=== PATIENT | female | born 1950 | race Hispanic/Latino ===

== ENCOUNTER 2019-07-21 07:19 | Inpatient (IN) ==
[2019-07-21] MEDS ORDERED: MORPHINE IV ONE (07:53)
[2019-07-21] MEDS ORDERED: NS 1,000 ML IV ONE ×2 (07:53→11:35)
--- NOTE | 2019-07-21 08:00 | PROVIDER DOCUMENTATION ---
HPI-Abdominal Pain/GI Problem - General Chief Complaint: Abdominal Pain Stated Complaint: STOMACH PAIN Time Seen by Provider: 07/21/19 07:43 Allergies/Adverse Reactions: Patient Allergies Allergy/AdvReac Type Severity Reaction Status Date / Time No Known Allergies Allergy Verified 06/26/19 10:15 Home Medications: Home Medication List Medication Instructions Recorded Confirmed Last Taken Type Atorvastatin Calcium 20 mg PO DAILY 06/26/19 07/21/19 06/26/19 08:00 History Ferrous Sulfate [Iron] 325 mg PO Q7D 06/26/19 07/21/19 Unknown History Hydrochlorothiazide 25 mg PO DAILY 06/26/19 07/21/19 06/26/19 08:00 History Omeprazole 20 mg PO DAILY 06/26/19 07/21/19 06/26/19 08:00 History Tramadol HCl 50 mg PO TID 07/21/19 07/21/19 Unknown History - History of Present Illness-ABD Nature of Presenting Problems: Sharp RUQ, mid abd pain, intermittently since ~1500 yest. Episodes last min or so, nothing relieves. Are worsened by laying supine. No fever, has occ nausea, no vomiting. No change in BM, no dysuria. She had a lap denzel on 06/[address] Jernigan Pain Radiation: reports: other (down R abd) Review of Systems - Adult - REVIEW OF SYSTEMS - ADULT Constitutional: reports: no symptoms reported Eyes: reports: no symptoms reported Cardiovascular: reports: no symptoms reported Respiratory: reports: no symptoms reported Gastrointestinal: reports: see HPI Genitourinary: reports: no symptoms reported Musculoskeletal: reports: no symptoms reported Integumentary: reports: no symptoms reported Neurological: reports: no symptoms reported Psychiatric: reports: no symptoms reported Endocrine: reports: no symptoms reported Hematologic/Lymphatic: reports: no symptoms reported Allergic/Immunologic: reports: no symptoms reported Past History - Adult - PAST MEDICAL HISTORY-ADULT Review of Records: reports: Medications Reviewed Major Childhood Illnesses: reports: denies history Cardiovascular: reports: HTN, hyperlipidemia Respiratory: reports: denies history Gastrointestinal: reports: denies history Obstetrical/Gynecological: reports: denies history Genitourinary: reports: denies history Musculoskeletal: reports: denies history Neurological: reports: denies history Psychiatric: reports: denies history Endocrine/Immune: reports: denies history - PRIOR SURGERIES/PROCEDURES Surgical/Procedure History: reports: none - IMMUNIZATION STATUS Childhood Immunizations: See Nurse Assessment Flu Vaccine: See Nurse Assessment - FAMILY HISTORY Family History: reviewed, not pertinent - SOCIAL HISTORY Smoking: denies Physical Exam-General - PHYSICAL EXAM-ADULT Initial Vital Signs Reviewed: Yes - CONSTITUTIONAL General Appearance: appears well, alert, moderate distress - EYES Eyes: PERRL/EOMI, pink conjunctivae - HEAD, EARS, NOSE, MOUTH & THROAT HENMT: normocephalic/atraumatic, moist mucous membranes, normal ENT inspection, pharynx normal - NECK Neck: non-tender, full range of motion, supple, normal inspection - RESPIRATORY Respiratory: chest non-tender, lungs clear, normal breath sounds, no pleuratic chest pain, no respiratory distress, no accessory muscle use - CARDIOVASCULAR Cardiovascular: normal peripheral pulses, regular rate, rhythm, no edema, no gallop, no murmur - GASTROINTESTINAL (ABDOMEN) Abdominal Exam: normal bowel sounds, soft, tenderness (mod to RUQ, mild to LLQ. incisions well healed, no erythema, no signs infection) - MUSCULOSKELETAL Back Exam: normal inspection, no vertebral tenderness, CVA tenderness (to Right) Extremity: normal range of motion, non-tender, normal inspection - SKIN Integumentary: normal color, normal turgor, warm/dry - NEUROLOGIC Neurologic: hematology technician II-XII nml as tested, grossly normal, no motor/sensory deficits - PSYCHIATRIC Psych/Mental Status: normal mood/affect, normal thought content, normal thought process, oriented x 3 Progress - PLAN OF CARE/RESULTS Progress/Plan/Lab Results: Vital Signs - 8 hr 07/21/19 07:24 Temperature 97.6 F Pulse Rate 75 Respiratory Rate 18 Blood Pressure 151/78 O2 Sat by Pulse Oximetry 98 Orders Category Date Time Status CT ABD/PELVIS W/IV CONT ONLY [CT] Stat Exams 07/21/19 07:53 Ordered AMYLASE [CHEM] Stat Lab 07/21/19 07:53 Uncollected CBC WITH DIFF [HEME] Stat Lab 07/21/19 07:52 Uncollected COMPREHENSIVE METABOLIC PANEL [CHEM] Stat Lab 07/21/19 07:53 Uncollected LIPASE [CHEM] Stat Lab 07/21/19 07:[address] W/POSS RFLX CULT [URINALYSIS] Stat Lab 07/21/19 07:53 Uncollected 0.9% Sodium Chloride Inj [Ns] 1,000 ml Med 07/21/19 07:53 Ordered IV 200 mls/hr Morphine Med 07/21/19 07:53 Once 4 mg IV NOW ONE Result Diagrams: 07/21/19 08:18 07/21/19 08:18 - CT/MRI 1 CT Study: Abdomen, Pelvis Impression: Abnormal (EXAM: CT ABD/PELVIS W/IV CONT ONLY HISTORY: RUQ, recent lap denzel TECHNIQUE: CT abdomen and pelvis with intravenous contrast COMPARISON: None. FINDINGS: The gallbladder has been removed. There is prominent fatty infiltration of the liver. Normal spleen, pancreas, adrenal glands, and kidneys. No hydronephrosis. No aortic aneurysm. Moderate atherosclerosis. There are fluid-filled loops of small bowel. No bowel dilatation. Normal appendix. No abscess. Urinary bladder is mildly distended. Normal uterus. No pelvic mass. IMPRESSION: 1.Fatty infiltration of the liver 2.Cholecystectomy 3.Possible ileus This exam was performed using automated exposure control, adjustment of mA or kV according to patient size, and/or use of iterative reconstruction technique. Electronically signed by Ward Nicole 07/21/2019 10:08 AM 07/21/19 1008 Interpreting Physician: Ward Nicole MD Dictated Date/Time: 07/21/19 1006 cc: Riaz Fernandez MD; Diana Stewart MD) - CONSULTS/PCP/HOSPITALIST Notification #1 *Consult/PCP/Hospitalist*: Napoleon Time Discussed: 11:33 Consult Disposition: Will see in ED, Admit Departure - Departure Date of Disposition Decision: 07/21/19 Time of Disposition Decision: 11:34 DIAGNOSIS: Ileus Disposition: ADMITTED INPATIENT 09 Certified Medical Emergency: Emergent Condition: Good Referrals and Follow-Ups: Diana Stewart MD [Primary Care Provider] - - Critical Care Note This patient required my direct & personal management of CC.: No Attestation - Physician/ RYANNE Attestation Patient care was provided by Advanced Practice Provider:: No The physician spent face to face time with patient:: Yes Advanced Practice Provider documentation review:: Supervising physician onsite and consulted in the evaluation and care of this patient. The physician did have a face to face encounter with the patient.
[2019-07-21 08:23] LABS: URINE SOURCE CLEAN CATCH
[2019-07-21 08:27] LABS: BASO# 0.01 X1000 (0.0-0.2); BASO% 0.1 % (0.0-0.8); EOS# 0.14 X1000 (0.0-0.7); EOS% 1.8 % (0.0-10.0); HEMATOCRIT 42.3 % (37.0-47.0); HEMOGLOBIN 13.6 g/dL (12.0-16.0); LYMPH# 1.61 X1000 (1.2-3.4); LYMPH% 20.3 % (20.5-51.1); MCH 25.6 PG (27-31); MCHC 32.2 g/dL (33-37); MCV 79.5 FL (81-99); MONO# 0.39 X1000 (0.11-0.59); MONO% 4.9 % (1.7-9.3); MPV 13.2 FL (7.4-10.4); NEUT# 5.79 X1000 (1.4-6.5); NEUT% 72.9 % (42.2-75.2); PLT 152 X1000 (130-400); RBC 5.32 XMIL (4.2-5.4); RDW 14.8 % (11.5-14.5); WBC 7.94 X1000 (4.8-10.8)
[2019-07-21 08:28] LABS: BILIRUBIN URINE NEGATIVE (NEGATIVE); BLOOD URINE NEGATIVE (NEGATIVE); COLOR YELLOW; GLUCOSE URINE NEGATIVE (NEGATIVE); KETONE URINE NEGATIVE (NEGATIVE); LEUKOCYTES URINE NEGATIVE (NEGATIVE); NITRITE URINE NEGATIVE (NEGATIVE); PH URINE 7.5; PROTEIN URINE TRACE mg/dL (NEGATIVE); TURBIDITY URINE CLEAR (CLEAR); UROBILINOGEN URINE NORMAL (NORMAL)
[2019-07-21 08:53] LABS: UR EPITHELIAL CELLS <10 /HPF (<10); URINE BACTERIA NEGATIVE /HPF; URINE RBC <10 /HPF (<10); URINE WBC <10 /HPF (<10)
[2019-07-21 09:21] LABS: AGAP 16; ALB/GLOB RATIO 1.3; ALBUMIN 4.8 g/dL (3.5-5.0); ALKALINE PHOSPHATASE 153 U/L (32-104); AMYLASE 67 U/L (20-200); BUN 16 mg/dL (8-22); CALCIUM 9.7 mg/dL (8.8-10.2); CHLORIDE 98 mmol/L (98-107); COSMO 278; CREATININE 0.7 mg/dL (0.5-0.9); GLUCOSE 123 mg/dL (70-104); GOT 33 U/L (10-30); GPT 27 U/L (10-36); LIPASE 18 U/L (13-60); POTASSIUM 3.8 mmol/L (3.5-5.1); SODIUM 138 mmol/L (136-145); TCO2 24 mmol/L (25-35); TOTAL BILIRUBIN 0.49 mg/dL (0.20-1.00); TOTAL PROTEIN 8.6 g/dL (6.3-8.3)
--- NOTE | 2019-07-21 10:11 | Diag Imaging Result Doc PS360 ---
EXAM: CT ABD/PELVIS W/IV CONT ONLY HISTORY: RUQ, recent lap denzel TECHNIQUE: CT abdomen and pelvis with intravenous contrast COMPARISON: None. FINDINGS: The gallbladder has been removed. There is prominent fatty infiltration of the liver. Normal spleen, pancreas, adrenal glands, and kidneys. No hydronephrosis. No aortic aneurysm. Moderate atherosclerosis. There are fluid-filled loops of small bowel. No bowel dilatation. Normal appendix. No abscess. Urinary bladder is mildly distended. Normal uterus. No pelvic mass. IMPRESSION: 1.Fatty infiltration of the liver 2.Cholecystectomy 3.Possible ileus This exam was performed using automated exposure control, adjustment of mA or kV according to patient size, and/or use of iterative reconstruction technique. Electronically signed by Ward Nicole 07/21/2019 10:08 AM
[2019-07-21] MEDS ORDERED: ZOFRAN IV PRN (11:35)
[2019-07-21] MEDS ORDERED: SODIUM CHLORIDE 0.9% INJ ONE (12:19)
[2019-07-21] MEDS ORDERED: PROTONIX IV ONE (12:19)
[2019-07-21] MEDS: MORPHINE IV PRN ×2 (12:59→19:02)
--- NOTE | 2019-07-21 13:29 | HISTORY AND PHYSICAL ---
CHIEF COMPLAINT: Abdominal pain, right upper quadrant and right mid abdomen since yesterday. She had a cholecystectomy on the 2nd of this month but had been getting better. She has not been having good bowel movements at home she says. Dr. Jernigan did her surgery. PAST HISTORY: Includes taking tramadol regularly but had been taking some other pain medicines after her surgery. She is on hydrochlorothiazide for hypertension, on Lipitor for hyperlipidemia. She takes iron ferrous sulfate 325 mg daily, omeprazole 20 mg daily. PAST SURGICAL HISTORY: Has only had a cholecystectomy in the past that she admits to. SOCIAL HISTORY: She has had 4 children. Does not use alcohol or tobacco. REVIEW OF SYSTEMS: Neurological: Denies headaches, seizures, visual problems, hearing problems. Pulmonary: Denies shortness of breath, cough, wheezing. Cardiovascular: Denies chest pain, heart palpitations, PND, orthopnea. Gastrointestinal: Has had some constipation issues and some abdominal pain that has become more severe. Genitourinary: Denies any problems with urination. Musculoskeletal: Has had a little arthritis symptoms. Endocrine: No diabetes or pituitary problems. Does have hypertension. PHYSICAL EXAMINATION: GENERAL: She is well developed, well nourished, 68-year-old woman who does not speak [place] but had an interpreter and translator with her. HEENT: She is normocephalic. EOMs intact. PERRLA. Throat clear. Fundi benign. NECK: Supple without thyromegaly, lymphadenopathy, or carotid bruits. LUNGS: Clear to auscultation and percussion without rhonchi, rales, or wheezes. HEART: Regular rate and rhythm without murmurs, gallops, friction rubs. ABDOMEN: Soft with tenderness in the right upper quadrant and a little bit less so diffusely. PELVIC AND RECTAL EXAM: Deferred. BREAST EXAM: Deferred. EXTREMITIES: She has good pulses at 2+ over 3+ in her feet bilaterally. IMAGING: CT scan of the abdomen did show possible early ileus with some fluid-filled loops of bowel but no dilatation. She also has fatty liver. LABORATORY DATA: Showed a white count was 7940. Urinalysis normal. Chemistries essentially normal except alkaline phosphatase is up a little bit at 153, glucose 123. VITAL SIGNS: Blood pressure was 151/71, respirations 18, pulse 75, temperature 97.6 degrees Fahrenheit. ADMITTING DIAGNOSES: 1. Abdominal pain. 2. Possible early ileus. PLAN: Will admit. Will consult Surgery. cc: Toney Bender Jr, MD
[2019-07-21] MEDS ORDERED: MYLICON DROPS PO PRN (14:11)
--- NOTE | 2019-07-21 14:54 | GENERAL SURGERY PROGRESS NOTE ---
DATE: 07/21/2019 BRIEF HISTORY: This is a 68-year-old female well known to me from previous laparoscopic cholecystectomy 2 weeks ago. I saw her in my office about 1 week ago. She was having some mild nausea but no significant abdominal pain. She was having bowel function and no fever. She and her family say that she was doing okay since that point until yesterday. She had been eating and having bowel function and generally getting better but yesterday she started having significant crampy abdominal pain all over, it comes and goes like in waves. No exacerbating or relieving factors. She denies nausea or vomiting. She did have a bowel movement yesterday. OBJECTIVE: Vital signs: She is afebrile. Vital signs are stable. General: She is awake, alert, oriented x3, no acute distress. GI: Soft, nondistended, minimally tender. No organomegaly or mass. Incisions are healing well. LABORATORY: CBC and complete metabolic profile reviewed and unremarkable. Urinalysis negative. IMAGING: CT of the abdomen and pelvis shows some mild fluid-filled loops of small bowel but no significant bowel distention. There is no free air, no free fluid. There are cholecystectomy changes. ASSESSMENT AND PLAN: A 68-year-old female with crampy abdominal pain of unclear etiology. Her stomach looks a little enlarged on the CAT scan. Perhaps, she has some mild delayed gastric emptying. We will start Reglan and simethicone for these symptoms and continue observation. I will order her a liquid diet for now. No acute surgical intervention needed at this time. cc: MD Toney Rios Jr, MD
[2019-07-21] MEDS: REGLAN IV SCH ×2 (15:28→20:33)
[2019-07-21] MEDS ORDERED: PNEUMOVAX 23 IM ONE (20:30)
[2019-07-22] MEDS: REGLAN IV SCH ×2 (02:45→08:44)
[2019-07-22 06:58] LABS: AGAP 13; BUN 8 mg/dL (8-22); CALCIUM 8.2 mg/dL (8.8-10.2); CHLORIDE 106 mmol/L (98-107); COSMO 284; CREATININE 0.6 mg/dL (0.5-0.9); ESTIMATED GFR > 60; GLUCOSE 116 mg/dL (70-104); POTASSIUM 3.7 mmol/L (3.5-5.1); SODIUM 143 mmol/L (136-145); TCO2 24 mmol/L (25-35)
[2019-07-22 07:04] LABS: HEMATOCRIT 35.4 % (37.0-47.0); HEMOGLOBIN 11.4 g/dL (12.0-16.0); MCHC 32.2 g/dL (33-37); MCV 80.8 FL (81-99); MPV 13.6 FL (7.4-10.4); RBC 4.38 XMIL (4.2-5.4); RDW 14.9 % (11.5-14.5); WBC 4.51 X1000 (4.8-10.8)
--- NOTE | 2019-07-22 07:50 | Diag Imaging Result Doc PS360 ---
EXAM: FLAT/UPRIGHT ABD/1 VIEW CHEST 07/22/2019 HISTORY: abd pain TECHNIQUE: Flat and upright abdomen with AP chest COMMENT: The inspiration is better than on 06/17/2019. There is ill-defined opacity in both lung bases which may be due to pulmonary edema. The heart size is at the upper limits of normal. There is no evidence of bowel obstruction in the stomach is not distended. There has been previous cholecystectomy. The liver and spleen appear to be somewhat enlarged. The spleen measures almost 14 cm in superior-inferior dimension. IMPRESSION: Hepatosplenomegaly. Mild pulmonary edema. Electronically signed by Noe Goodwin 07/22/2019 7:47 AM
[2019-07-22 08:48] VITALS: BP 135/54
[2019-07-22] MEDS: MORPHINE IV PRN (08:49)
--- NOTE | 2019-07-22 10:12 | PROGRESS NOTE ---
DATE: 07/22/2019 SUBJECTIVE: The patient's pain is much better. She has been started on clear liquids. She has been given some Reglan. She has been seen by Surgery. Abdominal film was essentially normal this morning. Chest x-ray showed a little pulmonary edema. She did get a good bit of IV fluids in the emergency room initially. However lungs do sound clear to auscultation. OBJECTIVE: Vital Signs: Blood pressure 135/54, respirations 16, pulse 69, temperature 98.6 degrees. HEENT: She is normocephalic. EOMS intact. PERRLA. Throat clear. Lungs: Clear to auscultation and percussion without rhonchi, rales, or wheezes. Heart: Regular rate and rhythm without murmurs, gallops, or friction rubs. Abdomen: Soft with only mild discomfort generally. Neurological: Intact grossly. Her was in the room as well this morning. ASSESSMENT: 1. Abdominal pain. 2. Mild pulmonary edema. The lungs sound clear. PLAN: Continue treatment and watch today. Will get a chest x-ray in the morning. If she becomes symptomatic with any pulmonary edema, will give her some Lasix, but this seems very, very mild and may just go away on its own. cc: Toney Bender Jr, MD
--- NOTE | 2019-07-22 14:25 | DISCHARGE SUMMARY ---
ADMISSION DATE: 07/21/2019 DISCHARGE DATE: 07/22/2019 FINAL DIAGNOSES: 1. Abdominal pain. Now resolved. 2. Status post cholecystectomy. 3. Questionable pulmonary edema-mild, no clinical signs. HISTORY OF PRESENT ILLNESS: The patient was admitted yesterday on 07/21/2019 with abdominal pain in the right upper quadrant and right mid abdomen. She had been having the pain for several hours. She has had a cholecystectomy on the 2nd of this month and had been getting better. The surgery was performed by Dr. Jernigan. Her pain was considered severe at that time, and there was concern that she may have had some complications after cholecystectomy. She does have hypertension and hyperlipidemia and is on several medications. We will discharge her home on her same regular medications. During her hospital stay, CT scan showed what might have been possible early ileus with some fluid filled loops of bowel but no dilatation. So did not really show an exact ileus at that time. This may have been more of an acute gastroenteritis. White count was 7940; it has dropped to 4510, which would be somewhat more like a viral acute gastroenteritis. She is feeling much better today and wants to go home. Dr. Jernigan came by to see her again. He felt like she could go home. Her chest x-ray had showed some mild pulmonary edema probably from her IV fluids yesterday given in the emergency room, but I do not hear any crackles in her chest at all. She is not having any symptoms with this. If she is slightly fluid overloaded, time will probably just take care of that. OBJECTIVE: Vital Signs: Temperature is 98.6 degrees Fahrenheit. Blood pressure 135/54, respirations 16, pulse 69. HEENT: She is normocephalic. EOMS intact. PERRLA. Throat clear. Lungs: Clear to auscultation and percussion without rhonchi, rales, or wheezes. Heart: Regular rate and rhythm without murmurs, gallops, friction rubs. Abdomen: Soft with, if any tenderness at all, very mild in the epigastric area. Neurological: Intact grossly. PLAN: We will discharge. Note I had seen her earlier today and put a note on her chart if after discussion with Dr. Jernigan, felt like she could go home, and the patient was eager to go home. cc: Toney Bender Jr, MD
--- NOTE | 2019-07-22 18:42 | GENERAL SURGERY PROGRESS NOTE ---
DATE: 07/22/2019 SUBJECTIVE: The patient feels better. She has less pain. No nausea. She did have a little diarrhea. OBJECTIVE: Vitals: She is afebrile. Vital signs are stable. General: She is awake, alert, oriented x3. No acute distress. GI: Soft, nontender, nondistended. Good bowel sounds. IMAGING: Her x-ray shows no bowel obstruction. ASSESSMENT AND PLAN: A 58-year-old female status post laparoscopic cholecystectomy several weeks ago with recurrent epigastric pain, nausea, and some diarrhea. These symptoms have significantly improved. The patient's son thinks she had something spicy or hot to eat yesterday. This likely upset her stomach. Given her improvement, I recommend discharge home today. cc: MD Toney Rios Jr, MD
== END 2019-07-22 12:33 | disposition home or self-care (01) | DRG 392 ==
LOC: ED 07:19 → EDIPHOLD 12:59 → 4N 14:49
PROVIDERS: ADMIT Emergency Medicine; ATTEND Emergency Medicine